=== PATIENT | female | born 1990 | race African-American/Black ===

== ENCOUNTER 2016-10-14 19:47 | Emergency (ER) | payer SELFPAY ==
[~2016-10-14] VITALS: Ht 154.9 cm; Wt 53.6 kg
[2016-10-14 19:50] VITALS: BP 127/82
== END 2016-10-14 20:30 | disposition left against medical advice (07) ==
LOC: ER 20:05
DX: O26.899 Other specified pregnancy related conditions, unspecified trimester (principal); R10.9 Unspecified abdominal pain; R11.2 Nausea with vomiting, unspecified; Z53.21 Procedure and treatment not carried out due to patient leaving prior to being seen by health care provider

== ENCOUNTER 2019-08-20 08:47 | Inpatient (IN) | payer MEDICAID ==
[~2019-08-20] VITALS: Ht 154.9 cm; Wt 49.9 kg
[2019-08-20] MEDS ORDERED: MORPHINE SULFATE 4 MG/ML CPJ (NOT FOR IM USE) IV STA (09:42)
[2019-08-20] MEDS ORDERED: ONDANSETRON HCL 4MG/2ML INJ IV STA (09:42)
[2019-08-20] MEDS ORDERED: SODIUM CHLORIDE 0.9% 1,000 ML IV ONE (09:42)
[2019-08-20 09:52] LABS: BASOPHILS % 0.4 % (0.0-2.0); EOSINOPHILS % 0.3 % (0.0-5.0); HEMATOCRIT. 40.3 % (36.0-48.0); HEMOGLOBIN. 14.1 g/dL (12.0-16.0); LYMPHOCYTES % 30.1 % (20.0-50.0); MEAN CORPUSCULAR HEMOGLOBIN 33.6 pg (28.0-32.0); MEAN CORPUSCULAR VOLUME 96.2 fL (81.0-99.0); MEAN PLATELET VOLUME 8.6 fl (7.4-10.4); MONOCYTES % 5.8 % (2.0-8.0); NEUTROPHILS % 63.4 % (40.0-76.0); PLATELET 233 x1000/uL (130-400); RED BLOOD CELL COUNT 4.19 mill/uL (4.2-5.4); RED CELL DISTRIBUTION WIDTH 12.4 % (11.6-14.6)
[2019-08-20 09:53] LABS: CHLORIDE 109 mEq/L (98-107)
[2019-08-20 09:58] LABS: ETHANOL BLOOD < 10 mg/dL
[2019-08-20 10:01] LABS: PROTHROMBIN TIME 10.9 sec (9.6-11.0)
[2019-08-20] MEDS ORDERED: MAGNESIUM/ALUMINUM HYDROXIDE/SIMETHICONE 30ML UDC PO STA (10:10)
[2019-08-20] MEDS ORDERED: VISCOUS LIDOCAINE 2% 15 ML UDC PO STA (10:10)
[2019-08-20] MEDS ORDERED: DICYCLOMINE 10 MG/5 ML ORAL SYR PO STA (10:10)
[2019-08-20 10:20] LABS: CLARITY URINE CLEAR (CLEAR); COLOR URINE YELLOW (YELLOW); KETONES URINE NEGATIVE (NEGATIVE); LEUKOCYTE ESTERASE URINE NEGATIVE (NEGATIVE); NITRITE URINE NEGATIVE (NEGATIVE); OCCULT BLOOD URINE NEGATIVE (NEGATIVE); PROTEIN URINE NEGATIVE (NEGATIVE); SPECIFIC GRAVITY URINE 1.007 (1.005-1.030); UROBILINOGEN URINE 0.2 E.U./dL (0.2-1.0)
[2019-08-20] MEDS ORDERED: LORAZEPAM 2MG/ML CPJ IV ONE (10:30)
[2019-08-20 10:56] LABS: *COCAINE SCREEN URINE NEGATIVE (NEGATIVE)
[2019-08-20 10:57] LABS: *AMPHETAMINES SCREEN URINE NEGATIVE (NEGATIVE); *BARBITURATES SCREEN URINE NEGATIVE (NEGATIVE); METHADONE URINE SCREEN NEGATIVE (NEGATIVE); OPIATES URINE SCREEN NEGATIVE (NEGATIVE); PHENCYCLIDINE URINE SCREEN NEGATIVE (NEGATIVE)
[2019-08-20 10:58] LABS: *BENZODIAZEPINES SCREEN URINE NEGATIVE (NEGATIVE)
[2019-08-20 11:00] LABS: CANNABINOID URINE SCREEN PRESUMTIVE POSITIVE (NEGATIVE)
[2019-08-20] MEDS ORDERED: DEXTROSE 50% WATER 50ML SYRINGE IV ONE (11:09)
[2019-08-20] MEDS ORDERED: POTASSIUM CHLORIDE 20MEQ TABLET SR PO NR (13:00)
[2019-08-20 14:00] VITALS: BP 113/62
[2019-08-20] MEDS ORDERED: FOLIC ACID 1 MG, THIAMINE HCL 100 MG, MVI, ADULT NO.1 10 ML in DEXTROSE 5% WATER 1,000 ML IV SCH ×4 (14:00)
[2019-08-20 16:00] VITALS: BP 115/64
[2019-08-20 20:00] VITALS: BP 108/73
[2019-08-20] MEDS ORDERED: ZOLPIDEM TARTRATE 5MG TABLET PO PRN (21:00)
[2019-08-20] MEDS: MORPHINE SULFATE 2 MG/ML CPJ (NOT FOR IM USE) IV PRN (21:23)
[2019-08-21] VITALS: BP 112/76
[2019-08-21] MEDS: MORPHINE SULFATE 2 MG/ML CPJ (NOT FOR IM USE) IV PRN (03:35)
[2019-08-21] MEDS: DEXT 5%/0.45% NACL 1000ML 1,000 ML IV SCH ×2 (03:51→03:52)
[2019-08-21 04:00] VITALS: BP 119/76
[2019-08-21] MEDS ORDERED: OMEPRAZOLE 20MG CAPSULE EXTENDED RELEASE PO SCH (07:20)
[2019-08-21 08:31] VITALS: BP 107/74
== END 2019-08-21 08:13 | disposition left against medical advice (07) | DRG 241 ==
LOC: ER 08:47 → 6EST 12:10 → ENRESERV 12:44
PROVIDERS: ADMIT Internal Medicine; ATTEND Internal Medicine
DX: K29.70 Gastritis, unspecified, without bleeding (principal); E87.8 Other disorders of electrolyte and fluid balance, not elsewhere classified; K21.9 Gastro-esophageal reflux disease without esophagitis; E87.6 Hypokalemia; Z53.29 Procedure and treatment not carried out because of patient's decision for other reasons; F12.90 Cannabis use, unspecified, uncomplicated; E16.2 Hypoglycemia, unspecified; Z87.891 Personal history of nicotine dependence; Z98.891 History of uterine scar from previous surgery
CPT/HCPCS: 36415; 80053; 80305; 80320; 81003; 82962; 83605; 85025; 99285; J2060; J2270; J2405; J3411; J3490; J7030; J7070; G0480

== ENCOUNTER 2023-09-08 03:09 | Emergency (ER) | payer MEDICAID, OTHER ==
[~2023-09-08] VITALS: Ht 154.9 cm; Wt 63.0 kg
[2023-09-08 03:37] VITALS: O2SAT 99
[2023-09-08] MEDS ORDERED: KETOROLAC 30MG/ML VIAL IV STA (06:04)
[2023-09-08] MEDS ORDERED: ONDANSETRON HCL 4MG/2ML INJ IV STA (06:04)
[2023-09-08] MEDS: SODIUM CHLORIDE 0.9% 1,000 ML IV ONE (06:15)
[2023-09-08] MEDS ORDERED: LOPERAMIDE HCL 2MG CAPSULE PO ONE (06:15)
[2023-09-08 06:45] LABS: BASOPHILS % 0.5 % (0.0-2.0); EOSINOPHILS % 0.3 % (0.0-5.0); HEMATOCRIT. 42.5 % (36.0-48.0); HEMOGLOBIN. 14.7 g/dL (12.0-16.0); LYMPHOCYTES % 17.6 % (20.0-50.0); MEAN CORPUSCULAR HEMOGLOBIN 33.3 pg (28.0-32.0); MEAN CORPUSCULAR HGB CONC 34.6 g/dL (31.0-37.0); MEAN CORPUSCULAR VOLUME 96.2 fL (81.0-99.0); MEAN PLATELET VOLUME 8.7 fl (7.4-10.4); MONOCYTES % 6.2 % (2.0-8.0); NEUTROPHILS % 75.4 % (40.0-76.0); PLATELET 292 x1000/uL (130-400); RED BLOOD CELL COUNT 4.42 mill/uL (4.2-5.4); RED CELL DISTRIBUTION WIDTH 12.2 % (11.6-14.6); WHITE BLOOD COUNT 10.8 x1000/uL (4.5-11.0)
[2023-09-08 06:52] LABS: CARBON DIOXIDE 22 mEq/L (21-32); CHLORIDE 108 mEq/L (98-107); POTASSIUM 3.3 mEq/L (3.5-5.1); SODIUM 136 mEq/L (136-145)
[2023-09-08 06:53] LABS: CALCIUM 9.6 mg/dL (8.7-10.4)
[2023-09-08 06:57] LABS: CREATININE 0.7 mg/dL (0.6-1.0); HCG SCREEN NEGATIVE
[2023-09-08 06:58] LABS: GLUCOSE 96 mg/dL (70-105); UREA NITROGEN BLOOD 7 mg/dL (9-23)
[2023-09-08 06:59] LABS: ALANINE AMINOTRANSFERASE 14 IU/L (10-49); ASPARTATE AMINOTRANSFERASE 20 IU/L (<34)
[2023-09-08 07:00] LABS: ALBUMIN 4.4 g/dL (3.2-4.8); BILIRUBIN DIRECT 0.2 mg/dL (<=3.0); BILIRUBIN TOTAL 0.5 mg/dL (0.1-1.0); PROTEIN TOTAL 7.7 g/dL (6.0-8.3)
[2023-09-08] MEDS ORDERED: LOPE2CAP PO (08:16)
[2023-09-08] MEDS ORDERED: ONDA4TAB50 PO (08:16)
[2023-09-08] MEDS: LOPERAMIDE HCL 2MG CAPSULE PO NR (08:22)
[2023-09-08] MEDS: KETOROLAC 30MG/ML VIAL IV NR (08:42)
[2023-09-08] MEDS: ONDANSETRON HCL 4MG/2ML INJ IV NR (08:42)
[2023-09-08 08:44] VITALS: BP 118/71; PULSE 70; RESP 16; TEMP 97.7
== END 2023-09-08 08:38 | disposition home or self-care (01) ==
LOC: ER 03:09
DX: R11.2 Nausea with vomiting, unspecified (principal); R19.7 Diarrhea, unspecified; F12.10 Cannabis abuse, uncomplicated; Z98.890 Other specified postprocedural states
CPT/HCPCS: 99284; 96374; 96361; 96375; 80076; 80048; 84703; 83690; 85025; 36415; J1885; J2405; J7030

== ENCOUNTER 2024-01-20 13:23 | Emergency (ER) | payer OTHER ==
[~2024-01-20] VITALS: Ht 154.9 cm; Wt 63.0 kg
[~2024-01-20 13:23] MED LIST: LOPE2CAP PO; ONDA4TAB50 PO
[2024-01-20 13:26] VITALS: O2SAT 99
[2024-01-20 13:28] VITALS: BP 126/87; PULSE 98; RESP 16; TEMP 98.8; O2SAT 98
[2024-01-20] MEDS: DEXAMETHASONE 10 MG/ML VIAL PO ONE (15:56)
== END 2024-01-20 16:19 | disposition home or self-care (01) ==
LOC: ER 13:23
DX: J02.9 Acute pharyngitis, unspecified (principal); F12.10 Cannabis abuse, uncomplicated; Z98.890 Other specified postprocedural states; Z20.822 Contact with and (suspected) exposure to COVID-19
CPT/HCPCS: 99283; 87426; 87430; 87070; 87804 ×2; J1100

== ENCOUNTER 2024-10-27 10:59 | Emergency (ER) | payer MEDICAID, OTHER ==
[~2024-10-27] VITALS: Ht 154.9 cm; Wt 59.0 kg
[2024-10-27 11:11] VITALS: O2SAT 98
[2024-10-27 11:30] VITALS: TEMP 37.1; O2SAT 98
[2024-10-27 12:58] LABS: BASOPHILS % 0.4 % (0.0-2.0); EOSINOPHILS % 1.1 % (0.0-5.0); HEMATOCRIT. 41.1 % (36.0-48.0); HEMOGLOBIN. 13.9 g/dL (12.0-16.0); LYMPHOCYTES % 21.7 % (20.0-50.0); MEAN PLATELET VOLUME 8.8 fl (7.4-10.4); MONOCYTES % 7.3 % (2.0-8.0); NEUTROPHILS % 69.5 % (40.0-76.0); PLATELET 246 x1000/uL (130-400); RED BLOOD CELL COUNT 4.25 mill/uL (4.2-5.4); RED CELL DISTRIBUTION WIDTH 12.1 % (11.6-14.6)
[2024-10-27 13:10] LABS: CREATININE 0.7 mg/dL (0.6-1.0); UREA NITROGEN BLOOD 7 mg/dL (9-23)
[2024-10-27 13:11] LABS: ETHANOL BLOOD < 10 mg/dL (<10)
[2024-10-27 13:12] LABS: ASPARTATE AMINOTRANSFERASE 19 IU/L (<34); BILIRUBIN DIRECT 0.1 mg/dL (<=3.0); BILIRUBIN TOTAL 0.5 mg/dL (0.1-1.0); PROTEIN TOTAL 7.8 g/dL (6.0-8.3)
[2024-10-27 13:22] LABS: HCG SCREEN NEGATIVE
[2024-10-27 14:45] VITALS: BP 122/80; PULSE 84; RESP 14
[2024-10-27] MEDS: KETOROLAC 30MG/ML VIAL IM ONE (14:45)
[2024-10-27] MEDS: ACETAMINOPHEN 325MG TABLET PO ONE (14:45)
[2024-10-27 15:29] LABS: CLARITY URINE CLEAR (CLEAR); COLOR URINE YELLOW (YELLOW); GLUCOSE URINE NEGATIVE (NEGATIVE); KETONES URINE TRACE (NEGATIVE); LEUKOCYTE ESTERASE URINE NEGATIVE (NEGATIVE); NITRITE URINE NEGATIVE (NEGATIVE); OCCULT BLOOD URINE NEGATIVE (NEGATIVE); PH URINE 6.0 (4.5-8.0); PROTEIN URINE NEGATIVE (NEGATIVE); SPECIFIC GRAVITY URINE 1.022 (1.005-1.030); UROBILINOGEN URINE 0.2 E.U./dL (0.2-1.0)
[2024-10-27 15:38] LABS: *AMPHETAMINES SCREEN URINE NEGATIVE (NEGATIVE); *BARBITURATES SCREEN URINE NEGATIVE (NEGATIVE); *BENZODIAZEPINES SCREEN URINE NEGATIVE (NEGATIVE); *COCAINE SCREEN URINE NEGATIVE (NEGATIVE); CANNABINOID URINE SCREEN PRESUMPTIVE POSITIVE (NEGATIVE); ECSTASY MDMA SCREEN URINE NEGATIVE (NEGATIVE); METHADONE URINE SCREEN NEGATIVE (NEGATIVE); OPIATES URINE SCREEN NEGATIVE (NEGATIVE); PHENCYCLIDINE URINE SCREEN NEGATIVE (NEGATIVE)
[2024-10-27] MEDS ORDERED: IBUP-2028 MT (15:51)
[2024-10-27] MEDS ORDERED: LIDO-53 TP (15:51)
[2024-10-27] MEDS ORDERED: METH-653 MT (15:51)
== END 2024-10-27 16:13 | disposition home or self-care (01) ==
LOC: ER 10:59
DX: M54.40 Lumbago with sciatica, unspecified side (principal); N83.201 Unspecified ovarian cyst, right side; F10.90 Alcohol use, unspecified, uncomplicated; F12.90 Cannabis use, unspecified, uncomplicated; Z79.899 Other long term (current) drug therapy; Y90.9 Presence of alcohol in blood, level not specified
CPT/HCPCS: 80076; 80305; 80048; 81003; 80320; 84703; 83690; 85025; 36415; 74176; 76830; 76856; 96372; 99285; J1885; G0480